=== PATIENT | female | born 1935 | race Caucasian/White ===

== ENCOUNTER 2022-12-26 03:08 | Inpatient (IN) | payer OTHER ==
[~2022-12-26] VITALS: Ht 157.5 cm; Wt 75.7 kg
[2022-12-26 03:19] LABS: PCO2 Arterial 43.2 mmHg (35-45); PO2 Arterial 72.8 mmHg (80-100)
[2022-12-26 03:21] LABS: pH Blood Arterial 7.19 (7.35-7.45)
[2022-12-26 04:06] LABS: Albumin, Blood 3.8 g/dL (3.4-5.0); Albumin/Globulin Ratio 1.1 (0.8-1.8); Bilirubin, Total 0.6 mg/dL (0.1-1.0); Bun/Creatinine Ratio 18.8 (12.0-20.0); Calcium, Blood 8.5 mg/dL (8.5-10.1); Creatinine, Blood 1.44 mg/dL (0.40-1.00); Globulin, Blood 3.4 g/dL (2.2-4.0); Potassium, Blood 4.2 mmol/L (3.5-5.5); Total Protein, Blood 7.2 g/dL (6.4-8.2)
[2022-12-26 04:19] LABS: Magnesium, Blood 2.3 mg/dL (1.6-2.4); Phosphorus, Blood 4.9 mg/dL (2.5-4.9)
[2022-12-26 04:58] LABS: BASOPHILS ABSOLUTE AUTO 0.04 K/mm3 (0.00-0.23); BASOPHILS PERCENT AUTO 0 % (0-2); EOSINOPHILS ABSOLUTE AUTO 0.01 K/mm3 (0.00-0.68); EOSINOPHILS PERCENT AUTO 0 % (0-6); Hematocrit 34.3 % (33.0-51.0); Hemoglobin 10.7 g/dL (11.5-16.0); IMMATURE GRAN ABSOLUTE AUTO 0.07 K/mm3 (0.00-0.10); IMMATURE GRAN PERCENT AUTO 1 % (0-1); LYMPHOCYTES ABSOLUTE AUTO 0.92 K/mm3 (0.84-5.20); LYMPHOCYTES PERCENT AUTO 6 % (21-46); MONOCYTES PERCENT AUTO 11 % (4-13); Mean Corpuscular HGB Conc 31.2 g/dL (31.5-36.5); Mean Corpuscular Volume 96 fL (80-100); Mean Platelet Volume 10.5 fL (9.1-12.4); NEUTROPHILS ABSOLUTE AUTO 11.95 K/mm3 (1.96-9.15); NEUTROPHILS PERCENT AUTO 82 % (41-73); Platelet Count 216 K/mm3 (150-400); RDW Standard Deviation 53.4 fL (35.1-46.3); Red Blood Cell Count 3.57 M/mm3 (3.80-5.20); White Blood Cell Count 14.59 K/mm3 (4.00-11.30)
[2022-12-26 06:31] LABS: D-Dimer, Quantitative 6.24 mg/L FEU (0.00-0.52); International Normalized Ratio 1.17; Prothrombin Time Results 12.2 Sec (9.7-11.5)
[2022-12-26 10:05] VITALS: BP 120/78
--- NOTE | 2022-12-26 10:15 | NUR ---
ADMISSION ASSESSMENT: Pt arrived to room PCU 3 from the ER. VSS. Denies CP, SOB or chest pressure. States that she is feeling much better. Pt oriented to room, unit, call light and plan of care. Denies needs. Family in room. Bed alarm in place. Call light in reach. Will continue to monitor.
[2022-12-26 12:25] VITALS: BP 129/70
[2022-12-26 15:30] VITALS: BP 127/58
[2022-12-26] MEDS ORDERED: EUTHYROX88 MCG PO (15:57)
[2022-12-26 17:30] VITALS: BP 114/92
--- NOTE | 2022-12-26 19:29 | NUR ---
Shift Summary: Pt resting in bed. Denies CP or SOB. States that she is feeling pretty good. Pt has done well this shift. Has remained chest pain free throughout shift. VSS throughout shift. Dr. Reyes came and spoke with patient, plan for medical management, per patient request. Pt denies questions or needs. Stable at end of shift. Report given to night RN.
[2022-12-26 20:28] VITALS: BP 123/62
--- NOTE | 2022-12-26 22:42 | NUR ---
ASSUMPTION OF CARE ASSUMED CARE AT APPROX 1900. PT AOX4, PLEASANT, TALKATIVE. EASILY AROUSABLE TO VERBAL STIMULI. ABLE TO COMMUNICATE NEEDS PRN. CAN BE FORGETFUL AT TIMES, BED ALARM IN PLACE. PROVIDED PT EDUCATION REGARDING USE OF CALL LIGHT AND FALL PREVENTION, PT RECEPTIVE, VERBALIZES UNDERSTANDING. VSS. TELEMETRY SHOWING SR 70'S. BP STABLE. CURRENTLY ON ROOM AIR, SATS >95%. RCVD IN REPORT THAT THE PT HAS A STRONG URINE ODOR. MD CONTACTED, ORDER IN PLACE FOR UA. 1P ASSIST W/ FWW. REPORTS GENERALIZED, CHRONIC, ARTHRITIS PAIN. REPORTS THAT PAIN IS TOLERABLE AT THIS TIME, WILL CONTINUE TO MONITOR, AND MANAGE PER EMAR PRN. PT CURRENTLY RESTING W/ EYES CLOSED, RESPIRATIONS EVEN AND UNLABORED. NO SIGNS OF DISTRESS NOTED. CALL LIGHT IN REACH.
[2022-12-26 23:47] LABS: Source, Urine Clean Catch
[2022-12-26 23:55] LABS: Bilirubin, Urine Neg (Neg); Blood, Urine Neg (Neg); Glucose Qualitative, Urine Neg (Neg); Ketones, Urine Neg (Neg); Leukocyte Esterase, Urine Neg (Neg); Nitrite, Urine Neg (Neg); Protein, Urine Neg (Neg); Urobilinogen, Urine NORM (Normal)
[2022-12-26 23:57] LABS: Appearance, Urine Clear (Clear); Color, Urine Yellow (P-Yellow)
[2022-12-27 00:11] VITALS: BP 130/61
--- NOTE | 2022-12-27 04:53 | NUR ---
SHIFT SUMMARY NO ACUTE CHANGES SINCE ASSUMPTION OF CARE. PT REMAINED AOX4. FORGETFUL AT TIMES, EASILY ABLE TO REDIRECT PRN. BED ALARM IN PLACE. VSS. TELEMETRY CONTINUING TO SHOW SR 70'S. ON ROOM AIR, SATS >90%. AMBULATING W/ 1P ASSIST FWW TO BSC. VOIDING. NO BM THIS SHIFT. PT CURRENTLY RESTING W/ EYES CLOSED, RESPIRATIONS EVEN AND UNLABORED. NO SIGNS OF DISTRESS NOTED. CALL LIGHT IN REACH. WILL REPORT TO ONCOMING RN.
[2022-12-27 05:21] VITALS: BP 138/62
[2022-12-27 08:32] VITALS: BP 124/69
[2022-12-27 09:25] LABS: Hematocrit 32.3 % (33.0-51.0); Hemoglobin 10.6 g/dL (11.5-16.0); Mean Corpuscular HGB 30.5 pg (26.0-34.0); Mean Corpuscular HGB Conc 32.8 g/dL (31.5-36.5); Mean Corpuscular Volume 93 fL (80-100); Mean Platelet Volume 10.9 fL (9.1-12.4); Platelet Count 190 K/mm3 (150-400); RDW Coefficient Variation 14.7 % (11.7-14.2); RDW Standard Deviation 50.4 fL (35.1-46.3); Red Blood Cell Count 3.48 M/mm3 (3.80-5.20); White Blood Cell Count 8.42 K/mm3 (4.00-11.30)
[2022-12-27 09:49] LABS: Bun/Creatinine Ratio 18.6 (12.0-20.0); Calcium, Blood 9.2 mg/dL (8.5-10.1); Creatinine, Blood 1.83 mg/dL (0.40-1.00); Potassium, Blood 4.4 mmol/L (3.5-5.5)
--- NOTE | 2022-12-27 10:11 | NUR ---
TRANSFER PT TRANSFERED TO 354 FROM PCU. PT ORIENTED TO ROOM. CALL LIGHT IN REACH. BED ALARM IN PLACE. ICE WATER PROVIDED & AT BEDSIDE. PT DENIES OTHER NEEDS AND WOULD LIKE TO SLEEP SHE DIDNT REST WELL OVERNIGHT.
--- NOTE | 2022-12-27 15:38 | NUR ---
SHIFT SUMMARY PT TRANSFERED FROM PCU THIS SHIFT. FAMILY AT BEDSIDE THE MAJORITY OF THE DAY. PATIENT AND FAMILY EDUCATED ON CHF, HEART ATTACK SYMPTOMS IN WOMEN VS MEN, AND MEDS BEING GIVEN TODAY. NO FURTHER QUESTIONS REQUIRED AT TIME OF EDUCATION. PT AMBULATING WITH 1P ASSIST TO BATHROOM. VOIDING WELL. NO OTHER ACUTE CHANGES IN ASSESSMENT AT THIS TIME. NO NEW ALERTS REPORTED FROM TELEMETRY. CALL LIGHT IN REACH. PT IN BED RESTING AT THIS TIME. REPORT GIVEN TO YAKELIN LUCIO TO FINISH THE SHIFT.
[2022-12-27 15:46] VITALS: BP 138/71
[2022-12-27 19:16] VITALS: BP 115/78
--- NOTE | 2022-12-27 19:46 | NUR ---
RECEIVED REPORT FROM KANNAN RN. PT IN BED. RESP EVEN ON RA. DENIES CP. FAMILY AT BEDSIDE. TELE IN PLACE. SR 81. REMINDED PT TO USE CALL LT FOR NEEDS. WILL CONTINUE TO PROVIDE CARE T/O SHIFT. CALL LT IN REACH.
--- NOTE | 2022-12-27 20:22 | NUR ---
RECEIVED AN ORDER FOR 5MG MELATONIN PO FOR PT. PT NEEDING SOMETHING TO HELP WITH SLEEP. NO OTHER NEEDS.
--- NOTE | 2022-12-27 22:00 | NUR ---
PT RESTING QUIETLY. WATCHING TV. BED ALARM ON. CALL LT IN REACH.
--- NOTE | 2022-12-27 22:38 | NUR ---
PT APPEARS TO RESTING QUIETLY. TV IS OFF. CALL LT IN REACH. BED ALARM ON.
--- NOTE | 2022-12-28 00:04 | NUR ---
PT RESTING QUIETLY WITH EYES CLOSED, TV IS ON. CALL LT IN REACH. BED ALARM ON.
--- NOTE | 2022-12-28 01:27 | NUR ---
PT RESTING WITH TV ON. NO NEEDS. CALL LT IN REACH. BED ALARM ON.
--- NOTE | 2022-12-28 03:30 | NUR ---
PT RESTING QUIETLY WEARING 2L NC DURING SLEEP. CALL LT IN REACH. BED ALARM ON.
[2022-12-28 04:10] VITALS: BP 144/68
[2022-12-28 04:14] LABS: BASOPHILS ABSOLUTE AUTO 0.04 K/mm3 (0.00-0.23); BASOPHILS PERCENT AUTO 1 % (0-2); EOSINOPHILS ABSOLUTE AUTO 0.21 K/mm3 (0.00-0.68); EOSINOPHILS PERCENT AUTO 3 % (0-6); Hematocrit 31.9 % (33.0-51.0); Hemoglobin 10.2 g/dL (11.5-16.0); IMMATURE GRAN ABSOLUTE AUTO 0.02 K/mm3 (0.00-0.10); IMMATURE GRAN PERCENT AUTO 0 % (0-1); LYMPHOCYTES ABSOLUTE AUTO 2.11 K/mm3 (0.84-5.20); LYMPHOCYTES PERCENT AUTO 27 % (21-46); MONOCYTES ABSOLUTE AUTO 0.96 K/mm3 (0.16-1.47); MONOCYTES PERCENT AUTO 12 % (4-13); Mean Corpuscular HGB 30.4 pg (26.0-34.0); Mean Corpuscular Volume 95 fL (80-100); Mean Platelet Volume 10.6 fL (9.1-12.4); NEUTROPHILS ABSOLUTE AUTO 4.45 K/mm3 (1.96-9.15); NEUTROPHILS PERCENT AUTO 57 % (41-73); Platelet Count 178 K/mm3 (150-400); RDW Coefficient Variation 14.6 % (11.7-14.2); RDW Standard Deviation 51.4 fL (35.1-46.3); Red Blood Cell Count 3.36 M/mm3 (3.80-5.20); White Blood Cell Count 7.79 K/mm3 (4.00-11.30)
[2022-12-28 04:35] LABS: Bun/Creatinine Ratio 22.6 (12.0-20.0); Calcium, Blood 8.9 mg/dL (8.5-10.1); Creatinine, Blood 1.99 mg/dL (0.40-1.00); Potassium, Blood 4.5 mmol/L (3.5-5.5)
--- NOTE | 2022-12-28 04:55 | NUR ---
SHIFT SUMMARY: A/O X 4. ON RA. DENIES SOB. ABLE TO AMBULATE TO BATHROOM USING FWW AND SBA WITHOUT DIFFICULTY. SINUS RHYTHM ON TELE WITH RATE OF 60'S. DENIES CHEST PAIN AND CHEST PRESSURE. PT LOOKING FORWARD TO DISCHARGE. IS A [place] AND US[facility]. A ONE TIME DOSE OF MELATONIN 5 MG PO GIVEN TO HELP PT TO REST. PT STATES THAT THE MELATONIN DID HELP. NO ACUTE CHANGES. WILL CONTINUE TO PROVIDE CARE UNTIL SHIFT REPORT TO ONCOMING NURSE GIVEN.
--- NOTE | 2022-12-28 06:10 | NUR ---
REPORT GIVEN TO DAY SHIFT CHARGE NURSE.
[2022-12-28 07:36] VITALS: BP 150/74
--- NOTE | 2022-12-28 10:00 | NUR ---
DR GRIFFITH IN ROUNDING ON PATIENT NOW
[2022-12-28 15:26] VITALS: BP 152/74
[2022-12-28 16:59] LABS: Bun/Creatinine Ratio 24.9 (12.0-20.0); Calcium, Blood 9.1 mg/dL (8.5-10.1); Creatinine, Blood 1.77 mg/dL (0.40-1.00); Potassium, Blood 4.7 mmol/L (3.5-5.5)
--- NOTE | 2022-12-28 17:30 | NUR ---
NO ACUTE CHANGES, ALERT AND OREINTED, FORGETFUL, EASILY RE-EDUCATED, POSSIBLE DISCHARGE HOME TOMORROW, NO RHYTHM EVENTS ON TELE, SBA WITH FWW, CALL LIGHT WITH IN REACH, WILL RELAY TO PM RN
[2022-12-28 19:48] VITALS: BP 121/67
--- NOTE | 2022-12-28 19:55 | NUR ---
ASSUMED PT CARE FROM RN ON DAYSHI. A&OX4. DENIES ANY NAUSEA, SOB, OR CHEST PAIN/PRESSURE. CHRONIC PAIN IN ARMS AND LEGS 11/06. IMPROVES WITH REPOSITIONING. WILL CONTINUES TO MONITOR. VITAL SIGNS STABLE. DENIES FURTHER NEEDS AT THIS TIME. CALL LIGHT IN REACH. BED ALARM ON.
[2022-12-29 03:37] VITALS: BP 144/68
[2022-12-29 05:27] LABS: BASOPHILS ABSOLUTE AUTO 0.04 K/mm3 (0.00-0.23); BASOPHILS PERCENT AUTO 1 % (0-2); EOSINOPHILS ABSOLUTE AUTO 0.23 K/mm3 (0.00-0.68); EOSINOPHILS PERCENT AUTO 3 % (0-6); Hemoglobin 10.5 g/dL (11.5-16.0); IMMATURE GRAN ABSOLUTE AUTO 0.02 K/mm3 (0.00-0.10); IMMATURE GRAN PERCENT AUTO 0 % (0-1); LYMPHOCYTES ABSOLUTE AUTO 1.93 K/mm3 (0.84-5.20); LYMPHOCYTES PERCENT AUTO 26 % (21-46); MONOCYTES ABSOLUTE AUTO 0.92 K/mm3 (0.16-1.47); MONOCYTES PERCENT AUTO 12 % (4-13); Mean Corpuscular HGB 30.5 pg (26.0-34.0); Mean Corpuscular HGB Conc 32.8 g/dL (31.5-36.5); Mean Corpuscular Volume 93 fL (80-100); Mean Platelet Volume 10.8 fL (9.1-12.4); NEUTROPHILS ABSOLUTE AUTO 4.27 K/mm3 (1.96-9.15); NEUTROPHILS PERCENT AUTO 58 % (41-73); Platelet Count 185 K/mm3 (150-400); RDW Coefficient Variation 14.6 % (11.7-14.2); RDW Standard Deviation 49.6 fL (35.1-46.3); Red Blood Cell Count 3.44 M/mm3 (3.80-5.20); White Blood Cell Count 7.41 K/mm3 (4.00-11.30)
[2022-12-29 06:01] LABS: Albumin, Blood 3.7 g/dL (3.4-5.0); Anion Gap 8 mmol/L (6-16); Blood Urea Nitrogen 47 mg/dL (8-24); Bun/Creatinine Ratio 26.1 (12.0-20.0); CO2, Blood 23 mmol/L (21-32); Calcium, Blood 8.8 mg/dL (8.5-10.1); Chloride, Blood 109 mmol/L (98-108); Glomerular Filtration Rate 27 (60-); Glucose, Blood 141 mg/dL (70-99); Magnesium, Blood 2.5 mg/dL (1.6-2.4); Phosphorus, Blood 4.5 mg/dL (2.5-4.9); Potassium, Blood 4.1 mmol/L (3.5-5.5); Sodium, Blood 140 mmol/L (136-145)
[2022-12-29 07:44] VITALS: BP 151/67
[2022-12-29] MEDS ORDERED: ATOR40TA PO (15:33)
[2022-12-29] MEDS ORDERED: CLOP75 PO (15:33)
[2022-12-29] MEDS ORDERED: CARV6.25 PO (15:33)
[2022-12-29] MEDS ORDERED: ASPI81CH PO (15:33)
[2022-12-29] MEDS ORDERED: FURO40 PO (15:34)
[2022-12-29] MEDS ORDERED: NITR.4SL SL (15:35)
--- NOTE | 2022-12-29 17:10 | NUR ---
DISCHARGE DISCHARGE MEDICATIONS AND INSTRUCTIONS EXPLAINED TO PATIENT AND CAREGIVER. THEY STATED UNDERSTANDING. IV REMOVED WITHOUT ISSUE. BELONGINGS WITH PATIENT. PATIENT TRASFERRED TO PRIVATE VEHICLE VIA WHEELCHAIR.
== END 2022-12-29 17:07 | disposition home or self-care (01) | DRG 280 ==
LOC: ER 03:08 → PCU 07:36 → MEDS 12-27 10:00
PROVIDERS: Emergency Medicine; Family Medicine; Student in an Organized Health Care Education/Training Program; ADMIT Hospitalist
PROC: 5A09357 Assistance with Respiratory Ventilation, Less than 24 Consecutive Hours, Continuous Positive Airway Pressure (ICD-10-PCS; principal; 2022-12-26)
PROC: 4A033R1 Measurement of Arterial Saturation, Peripheral, Percutaneous Approach (ICD-10-PCS; 2022-12-26)
DX: I21.4 Non-ST elevation (NSTEMI) myocardial infarction (principal); I50.21 Acute systolic (congestive) heart failure; J96.01 Acute respiratory failure with hypoxia; I42.0 Dilated cardiomyopathy; I13.0 Hypertensive heart and chronic kidney disease with heart failure and stage 1 through stage 4 chronic kidney disease, or unspecified chronic kidney disease; Z66 Do not resuscitate; N18.30 Chronic kidney disease, stage 3 unspecified; I44.7 Left bundle-branch block, unspecified; E03.9 Hypothyroidism, unspecified; E66.9 Obesity, unspecified; D63.1 Anemia in chronic kidney disease; D72.829 Elevated white blood cell count, unspecified; Z68.30 Body mass index [BMI] 30.0-30.9, adult; Z98.49 Cataract extraction status, unspecified eye; Z90.710 Acquired absence of both cervix and uterus; Z23 Encounter for immunization
CPT/HCPCS: 36415; 36600; 71045; 71260; 80048; 80053; 80069; 81003; 82803; 82947; 83605; 83735; 83880; 84100; 84145; 84484; 85025; 85027; 85379; 85520; 85610; 85730; 87040; 93005; 93010; 94660; 94760; 96365-59; 96375-59; 99285-25; A9270; C8929; J0456; J0696; J1644; J1650; J1940; J7050; Q9957; Q9967